=== PATIENT | female | born 1980 | race African-American/Black ===

== ENCOUNTER → 2016-12-19 | Day surgery (SDC) | payer OTHER ==
[~2016-12-19] VITALS: Ht 154.9 cm; Wt 85.2 kg
[~2016-12-19] MED LIST: *morphine SULFATE 8 MG/ML PERIprocedure ONLY ONE; AMLO5TAB2 PO; BUPIVACAINE/EPINEPHRINE 0.25% 50 ML VIAL ONE; CHLORHEXIDINE GLUCONATE 2 % 1 PACK (2 CLOTHS) TOPICAL PRN; DEXAMETHASONE SOD PHOS 4 MG/ML VIAL ONE; DO NOT ADM ANY ANTICOAGULANT DRUGS PRN; INSULIN HUMAN REGULAR 1,000 UNITS/10 ML VIAL SQ PRN; KETOROLAC TROMETHAMINE 60 MG/2 ML (IM) VIAL IM ONE; LACTATED RINGER'S 1000 ML INJ 1,000 ML IV ONE; LACTATED RINGER'S 1000 ML IV PRN; LEXA10TA PO; LORA-474 PO; MEPERIDINE HCL 50 MG/ML VIAL ONE; METHYLENE BLUE 10 MG/ML VIAL OTHER ONE; METOPROLOL TARTRATE 25 MG TAB PO PRN; MIDAZOLAM HCL 2 MG/2 ML VIAL ONE; NEOSTIGMINE 3 MG/3 ML SYR IV ONE; ONDANSETRON HCL 4 MG/2 ML VIAL IV PUSH ONE; PERC5TAB12 PO; POVIDONE IODINE 5% (ANTISEPSIS KIT) 4 APPLICATIONS EACH NARE PRN; PROPOFOL 200 MG/20 ML AMP IV ONE; SODIUM CHLORID 0.9% 500 ML IV PRN; oxyCODONE/ACETAMINOPHEN 5 MG/325 MG TAB ONE; oxyCODONE/ACETAMINOPHEN 5 MG/325 MG TAB PO ONE
[2016-12-19 08:29] LABS: BASOPHIL # 0.1 TH/MM3 (0-0.2); EOSINOPHIL # 0.2 TH/MM3 (0-0.4); EOSINOPHIL % 2.7 % (0.0-4.0); HEMATOCRIT 35.6 % (35.0-46.0); HEMO FLAGS DIFF FINAL; LYMPH % 31.7 % (9.0-44.0); LYMPHOCYTE # 2.2 TH/MM3 (1.0-4.8); MEAN CELL VOLUME 78.3 FL (80.0-100.0); MEAN CORPUSCULAR HEMOGLOBIN 25.1 PG (27.0-34.0); MEAN CORPUSCULAR HGB CONC 32.1 % (32.0-36.0); NEUT % 56.6 % (16.0-70.0); PLATELET COUNT 289 TH/MM3 (150-450); RED BLOOD COUNT 4.55 MIL/MM3 (4.00-5.30); RED CELL DISTRIBUTION WIDTH 15.6 % (11.6-17.2); WHITE BLOOD COUNT 7.1 TH/MM3 (4.0-11.0)
--- NOTE | 2016-12-19 09:58 | PD.OP ---
Operative Report Date of Surgery: Dec 19, 2016 Preoperative Diagnosis: (1) Pelvic pain in female Postoperative Diagnosis: (1) Pelvic pain in female Procedure: DX LSC chromopertubation Surgeon: Connor Boykin Treatment Coordinator(s): Connor Ahumada MD Dec 19, 2016 09:58
--- NOTE | 2016-12-19 10:02 | HHI.DCPOC ---
Discharge Care Plan Diagnosis: (1) Pelvic pain in female Report Symptoms to Your Doctor -Temperature above 100.5 degrees -Redness, of incision or excessive or foul smelling drainage -Unusual pain or calf pain -Increased vaginal bleeding -Painful or difficulty urinating -Feelings of extreme sadness or anxiety after 2 weeks Goals to Promote Your Health * To prevent worsening of your condition and complications * To maintain your health at the optimal level Directions to Meet Your Goals Take your medications as prescribed Follow your dietary instruction Follow activity as directed Ensure plenty of rest for recovery Drink fluids for hydration Keep your appointments as scheduled Take your immunizations and boosters as scheduled If your symptoms worsen call your PCP, if no PCP go to Urgent Care Center or Emergency Room Smoking is Dangerous to Your Health. Avoid second hand smoke Call the 24-hour crisis hotline for domestic abuse at Connor Boykin MD Dec 19, 2016 10:02
[2016-12-19 11:36] VITALS: BP 131/81; PULSE 95; RESP 20; TEMP 98.2; O2SAT 99
--- NOTE | 2016-12-20 08:31 | MP ---
cc: BISMARK BOYKIN M.D. DATE OF SURGERY 12/19/2016 PROCEDURE Diagnostic laparoscopy with a chromopertubation. PREOPERATIVE DIAGNOSIS Pelvic pain in a female. POSTOPERATIVE DIAGNOSIS Pelvic pain in a female. SURGEON Dr. Bismark Boykin ESTIMATED BLOOD LOSS Less than 10 cc COMPLICATIONS None FINDINGS The patient had an absent right fallopian tube, left fallopian tube was normal and spilled dye easily. PROCEDURE IN DETAIL After informed consent, the patient was taken to the operating room where she was placed under general anesthesia and placed in the supine position with her legs in the Yellow-fin stirrups. The abdomen, perineum and vagina were prepped and draped in the normal sterile fashion. The bladder was drained with a red Henderson catheter after a time-out was taken. A speculum was placed in the vagina. The cervix grasped with a single-tooth tenaculum and an acorn uterine manipulator was placed in the cervix. At this point, gloves were changed and a 5 mm infraumbilical incision was then made, carried sharply in the subcutaneous tissue and we entered the abdomen under direct visualization. We surveyed the upper and lower abdomen and appendix all normal. The right fallopian tube was absent. The left fallopian tubes spilled easily when dye was pushed through the uterus. There is no endometriosis or adhesions. The left fallopian tube was completely normal. The right fallopian tube was completely absent. The patient tolerated the procedure well. All instruments removed from the abdomen along with CO2. The 5 mm trocar sites were closed with 4-0 Monocryl. The patient was taken to the recovery room in stable condition. MD YULISSA Moran/DARRIN /9:59 AM /8:23 AM
== END | disposition home or self-care (01) ==
LOC: HSDC 07:35
PROVIDERS: ATTEND Obstetrics & Gynecology
DX: R10.2 Pelvic and perineal pain (principal); N93.9 Abnormal uterine and vaginal bleeding, unspecified; I10 Essential (primary) hypertension; F41.9 Anxiety disorder, unspecified; Z79.899 Other long term (current) drug therapy
CPT/HCPCS: 00952; 49320; 58350; 84703; 85025; J1100; J1885; J2175; J2250; J2270; J2405; J2710; J3010; J7120